=== PATIENT | male | born 1960 | race African-American/Black ===

== ENCOUNTER 2021-07-15 16:55 | Emergency (ER) | payer MEDICARE, MEDICAID ==
[~2021-07-15] VITALS: Ht 193 cm; Wt 98.0 kg
[2021-07-15] MEDS ORDERED: SODIUM CHLORIDE 0.9% 1,000 ML IV ONE (17:45)
[2021-07-15] MEDS ORDERED: ONDANSETRON HCL 4MG/2ML INJ IV ONE (17:45)
[2021-07-15] MEDS ORDERED: MORPHINE SULFATE 2 MG/ML CPJ (NOT FOR IM USE) IV ONE (17:45)
[2021-07-15 18:10] LABS: BASOPHILS % 0.6 % (0.0-2.0); HEMATOCRIT. 37.5 % (42.0-52.0); HEMOGLOBIN. 11.8 g/dL (14.0-18.0); LYMPHOCYTES % 25.4 % (20.0-50.0); MEAN CORPUSCULAR HEMOGLOBIN 25.4 pg (28.0-32.0); MEAN CORPUSCULAR VOLUME 80.6 fL (80.0-94.0); MEAN PLATELET VOLUME 8.1 fl (7.4-10.4); MONOCYTES % 10.4 % (2.0-8.0); NEUTROPHILS % 59.6 % (40.0-76.0); PLATELET 197 x1000/uL (130-400); RED BLOOD CELL COUNT 4.65 mill/uL (4.7-6.1); RED CELL DISTRIBUTION WIDTH 13.8 % (11.6-14.6)
[2021-07-15 18:12] LABS: CHLORIDE 106 mEq/L (98-107)
[2021-07-15 18:22] LABS: CREATINE KINASE 161 IU/L (39-308)
[2021-07-15] MEDS ORDERED: IOHEXOL-300 100 ML BOTTLE ONE (20:56)
[2021-07-15] MEDS ORDERED: NICARDIPINE 40MG/200ML PREMIX 200 ML IV STA (21:01)
[2021-07-15] MEDS ORDERED: IOHEXOL-350 100 ML BOTTLE ONE (23:18)
[2021-07-16 00:54] VITALS: BP 120/62
== END 2021-07-16 00:56 | disposition short-term general hospital (02) ==
LOC: ER 16:55
DX: I71.01 Dissection of thoracic aorta (principal); I77.76 Dissection of artery of upper extremity; Z20.822 Contact with and (suspected) exposure to COVID-19
CPT/HCPCS: 36415; 71045; 71275; 74174; 74177; 80048; 80076; 82550; 83690; 84484; 85025; 86850; 86900; 86901; 87426; 93005; 96361; 96372; 96374; 96375; 99291; J2270; J2405; J7030; Q9967